=== PATIENT | female | born 1940 | race Asian ===

== ENCOUNTER 2023-07-27 09:14 | Emergency (ER) | payer MEDICARE, SELFPAY ==
[2023-07-27] VITALS (15 sets, daily range): BP systolic 94–148; BP diastolic 46–79; BMI 18.3
--- NOTE | 2023-07-27 09:26 | ED.MUSCINJ ---
HPI-Injury
General
Chief Complaint: Fall
Source: patient
Exam Limitations: none
Time Seen by Provider: 07/27/23 09:23
Travel History
Have you had any contact with someone who has COVID-19?: No
Do you have any symptoms of coronavirus? Fever > 100 degrees, chills, cough, shortness of breath, sore throat, loss of taste or smell, muscle aches, or headache?: No
History of Present Illness-Injury
Initial Injury comments:
83-year-old female presents via EMS from home where she lives with family. She is feeling abdominal discomfort and had to go to the bathroom. She went to the bathroom and felt dizzy. She felt out hitting the back of her head on a towel rack. She
was placed in a cervical collar by EMS and presented here for evaluation. No anticoagulants. History of noninsulin dependent diabetes. She complains of lower back pain and a headache. No loss of conscious. No other complaints at this time
Phy Exam
Physical Exam
Physical Exam:
General: Well-appearing female no acute respiratory distress
HEENT: Normocephalic pupils equal round measuring 1 mm nonreactive to light. Laceration noted to posterior scalp. TMs normal mucosa moist
Heart: Regular rate and rhythm no murmurs
Lungs: Clear to auscultation bilaterally no wheeze
Neurologic exam: Alert and oriented to person and place. No facial asymmetry no drift.
Abdomen soft slightly distended but nontender no guarding or rebound normal bowel
Musculoskeletal exam: Cervical spine and collar. Mildly tender diffusely about the lumbar spine. Good range of motion all extremities
Skin is warm no rash or lesion
Injury Course
Orders/Labs/Results
Orders:
Orders
07/27/23 09:25
Electrocardiogram (*1) Urgent
Reason for Study: Fatigue / Weakness
CT Cervical Spine W/o Iv Contr Urgent
Comment:
Reason For Exam: fall
CR Lumbar Spine 2 Or 3 Views Urgent
Comment:
Reason For Exam: fall
07/27/23 09:26
CT Head W/o Iv Contrast Urgent
Comment:
Reason For Exam: fall
EKG- Treatment ONCE
07/27/23 09:38
Complete Blood Count/With Diff Urgent
07/27/23 10:14
Comprehensive Metabolic Panel Urgent
07/27/23 12:17
0.9% Sodium Chloride 1000 ml [Nss] 1,000 ml IV BOLUS
07/27/23 14:24
PT Consult [Pt Eval And Treat] Urgent
Activity Level: Ambulate
Abnormal Lab Results
07/27/23 07/27/23
09:38 10:14
WBC 14.3 H 10^3/uL
(4.8-10.8)
RDW 14.6 H %
(11.5-14.5)
Abs Immat Gran (auto) 0.1 H 10^3/uL
(0-0.05)
Absolute Neuts (auto) 13.1 H 10^3/uL
(1.4-6.5)
Absolute Lymphs (auto) 0.6 L 10^3/uL
(1.2-3.4)
Immature Gran % 0.6 H %
(0-0.5)
Neutrophils % 91.3 H %
(42.2-75.2)
Lymphocytes % 4.3 L %
(20.5-51.1)
BUN 24 H mg/dl
(7-17)
Creatinine 0.5 L mg/dL
(0.6-1.0)
Glucose 201 H mg/dl
(70-99)
07/27/23 09:38
07/27/23 10:14
MDM/Problems Addressed
Differential Diagnosis Includes:
Fall with head injury. CT head and cervical spine pending x-ray lumbar spine pending. Patient was dizzy when she stood up from bed. Possible orthostasis. Will check labs and EKG
*Critical Care Note
Total Time (30-74mins, 75-104mins- exclusive of procedures): Not Applicable
Update Note
Update Note:
CT of head and cervical spine negative. X-ray lumbar spine also negative for acute finding. The wound on the back of the head was reexamined. There is a 2 cm laceration in the transverse direction over the posterior scalp. The edges do separate
about half a centimeter. This was cleansed with saline anesthetized with 1% lidocaine with epinephrine and 2 skin javier were placed into the wound for wound edge approximation and hemostasis. Will do orthostatic vital signs
Patient was symptomatic upon testing for orthostatic vital signs. Her blood pressure dropped quite a bit. She was hydrated with a liter of fluids and reevaluated. She felt much better. Physical therapy formally evaluated her. She walked up and
down the hallway steadily without any difficulty. I discussed these findings with the patient's family doctor, Dr. Lawrence as well as the family on the phone. At this point no indication for admission. Will discharge home.
ED Attending Note
-
Portions of this chart may have been created with voice recognition software.� Occasional wrong word or��sound alike� substitutions may have occurred due to the inherent limitations of voice recognition software.
Discharge Plan
Departure
Patient Disposition: Home (Routine Discharge)
Date of Disposition: 07/27/23
Time of Disposition: 15:11
Patient with high blood pressure during this ER visit?: No
Discharge Problem:
Dehydration, Laceration
Instructions: Laceration Repair With [place] ([place])
Referrals:
Hamilton Bassett MD [Family Provider] -
Activity Restrictions/Additional Instructions:
Encourage plenty of fluids. Continue with Tylenol if needed for pain. Use walker when ambulating. Return if worse otherwise follow-up with your family doctor
Interventions
Interventions:
*Risk Screen - Suicide Last Done: 07/27/23 09:17
*General Assessment Last Done: 07/27/23 09:17
*Neglect/Abuse Screening Last Done: 07/27/23 09:17
ED- Fall Risk Assessment Last Done: 07/27/23 09:17
*ED COVID-19 Vaccine History Last Done: 07/27/23 09:17
ED-Musculoskeletal Assessment Last Done: 07/27/23 09:17
ED- Neurological Assessment Last Done: 07/27/23 09:17
ED-Skin Assessment Last Done: 07/27/23 09:17
Discharge Date and Time
Print Language: SLOVENIAN
[2023-07-27 09:47] LABS: % Basophils 0.3 % (0-2); % Eosinophils 0.1 % (0-6); % Immature Granulocytes 0.6 % (0-0.5); % Lymphocytes 4.3 % (20.5-51.1); % Monocytes 3.4 % (1.7-9.3); % Neutrophils 91.3 % (42.2-75.2); Absolute Immature Granulocytes 0.1 10^3/uL (0-0.05); Absolute Lymphocytes 0.6 10^3/uL (1.2-3.4); Absolute Monocytes 0.5 10^3/uL (0.1-0.6); Absolute Neutrophils 13.1 10^3/uL (1.4-6.5); Hematocrit 41.7 % (37.0-47.0); Hemoglobin 14.2 g/dL (12.0-16.0); Mean Corp Hgb Conc. 34.1 g/dL (33.0-37.0); Mean Corpuscular Hgb 28.7 pg (27.0-31.0); Mean Corpuscular Volume 84.4 fL (81.0-99.0); Mean Platelet Volume 9.5 fL (7.4-10.4); Nucleated Red Blood Cells % 0 %; Platelet Count 175 10^3/uL (130-400); Red Blood Cell Count 4.94 10^6/uL (4.20-5.40); Red Cell Dist. Width 14.6 % (11.5-14.5); White Blood Cell Count 14.3 10^3/uL (4.8-10.8)
[2023-07-27 10:56] LABS: ALT (SGPT) 17 U/L (0-35); AST (SGOT) 25 U/L (14-36); Albumin 4.5 g/dl (3.5-5.0); Alkaline Phosphatase 67 U/L (38-126); Blood Urea Nitrogen 24 mg/dl (7-17); Calcium 9.8 mg/dl (8.4-10.2); Carbon Dioxide 23 mmol/L (22-30); Chloride 104 mmol/L (98-107); Estimated Creatinine Clearance 52 ml/min; Glucose 201 mg/dl (70-99); Potassium 3.9 mmol/L (3.5-5.1); Sodium 135 mmol/L (135-145); Total Bilirubin 0.6 mg/dl (0.2-1.3); Total Protein 6.9 g/dl (6.3-8.2); eGFR > 60.00
[2023-07-27] MEDS: NSS 1000 IV (12:20)
== END 2023-07-27 16:16 | disposition home or self-care (01) ==
LOC: EMR 09:14
PROVIDERS: Physician Assistant; EMERGENCY PHYSICIAN Emergency Medicine; FAMILY PHYSICIAN Internal Medicine
DX: S01.01XA Laceration without foreign body of scalp, initial encounter (principal); E86.0 Dehydration; W19.XXXA Unspecified fall, initial encounter; E11.9 Type 2 diabetes mellitus without complications
CPT/HCPCS: 99285; 96360; 12001; 70450; 72100; 72125; 80053; 85025; 93005

== ENCOUNTER 2023-08-03 14:42 | Emergency (ER) | payer MEDICARE, SELFPAY ==
[2023-08-03 14:46] VITALS: BP 174/94
[2023-08-03 18:36] VITALS: BP 175/78
--- NOTE | 2023-08-03 19:08 | ED.GENMED ---
History of Present Illness
General
Chief Complaint: Bowel Problem
Source: patient
Exam Limitations: none
Time Seen by Provider: 08/03/23 19:08
Nursing documentation reviewed up to this point in time: agreed with
Travel History
Have you had any contact with someone who has COVID-19?: No
Do you have any symptoms of coronavirus? Fever > 100 degrees, chills, cough, shortness of breath, sore throat, loss of taste or smell, muscle aches, or headache?: No
History of Present Illness
History of Present Illness:
Patient is an 83-year-old female who presents to the ER complaining of constipation.
She has not moved her bowels in 1 week. She has tried Dulcolax and milk of magnesia MiraLAX and an enema without relief. She does complain abdominal bloating distention. Denies any nausea vomiting. Her family doctor saw her and ordered
outpatient CAT scan which she did have today. CAT scan report in system shows large amount of feces in the distended colon and rectum suggesting constipation.
Review of Systems
Review of Systems
Allergies reviewed?: Yes
Other source history: family
All Other Systems: ROS reviewed and negative except as documented in HPI and ROS
Constitutional: Reports no symptoms
Cardiac: Reports no symptoms
ABD/GI: Reports constipated; Denies nausea, vomiting or diarrhea
: Reports no symptoms
Musculoskeletal: Reports no symptoms
Skin: Reports no symptoms
Neurological: Reports no symptoms
Psychiatric: Reports no symptoms
Phy Exam
General Physical Exam
General Presentation: no apparent distress
General age: appears stated age
General Skin: warm and dry
General Habitus: normal
General Mental: alert
General Hydration: appears well hydrated
Gastrointestinal Exam
Gastrointestinal Exam: non tender, soft and distended
Neurological Exam
Neurological Exam: alert and oriented x3
Musculoskeletal Exam
Musculoskeletal Exam: full ROM
Skin Exam
Skin Exam: normal color and warm/dry
Psychiatric Exam
Psychiatric Exam: normal mood/affect
Course
Orders/Labs/Results
Orders:
Orders
08/03/23 19:22
Enema- Treatment ONCE
Type: Soap Suds
Amount: x1
Vital Signs
Initial and Last Documented VS:
Initial Vital Signs
Temp Pulse Resp BP Pulse Ox
97.3 F 79 16 174/94 98
08/03/23 14:46 08/03/23 14:46 08/03/23 14:46 08/03/23 14:46 08/03/23 14:46
Last Documented Vital Signs
Temp Pulse Resp BP Pulse Ox
97.3 F 74 16 175/78 98
08/03/23 14:46 08/03/23 18:36 08/03/23 18:36 08/03/23 18:36 08/03/23 18:36
MDM/Problems Addressed
MDM/Problems Addressed:
Patient presents to the ER complaining of 7 days of constipation. She has tried as documented both medications without relief. She is not nauseous or vomiting but does complain of being uncomfortable distended. She an outpatient CAT scan today
which shows significant constipation and distended colon. Patient recently had her outpatient blood work checked on July 26 with a normal creatinine. She denies any fever or chills. Will try soapsuds enema.
2054: Patient was given an enema here and had large bowel movement feeling significantly improved. Family at bedside patient feels well enough to go home.
*Radiology
Radiology exam reviewed: radiology read reviewed (outpt ct )
*Critical Care Note
Total Time (30-74mins, 75-104mins- exclusive of procedures): Not Applicable
ED Attending Note
-
Portions of this chart may have been created with voice recognition software.� Occasional wrong word or��sound alike� substitutions may have occurred due to the inherent limitations of voice recognition software.
Discharge Plan
Departure
Patient Disposition: Home (Routine Discharge)
Date of Disposition: 08/03/23
Time of Disposition: 20:56
Patient with high blood pressure during this ER visit?: Yes
Condition: Fair
Covid-19: Not Applicable
Discharge Problem:
Acute constipation
Instructions: Constipation, Adult ([place]), BLOOD PRESSURE
Referrals:
Jose L Bassett MD [Family Provider] -
Activity Restrictions/Additional Instructions:
Follow-up with family doctor as needed in the next several days. You may continue MiraLAX to prevent further constipation. Return if any worsening of symptoms.
Interventions
Interventions:
ED- Fall Risk Assessment Last Done: 08/03/23 20:10
CA-Fcuddh-Hatevjuatz Assessment Last Done: 08/03/23 20:10
Discharge Date and Time
Print Language: [place]
== END 2023-08-03 21:07 | disposition home or self-care (01) ==
LOC: EMR 14:42
PROVIDERS: EMERGENCY PHYSICIAN Emergency Medicine; FAMILY PHYSICIAN Internal Medicine
DX: K59.09 Other constipation (principal); R03.0 Elevated blood-pressure reading, without diagnosis of hypertension
CPT/HCPCS: 99284; 74177; Q9967